=== PATIENT | female | born 1950 | race Caucasian/White ===

== ENCOUNTER 2017-04-27 18:26 | Emergency (ER) | payer MEDICARE ==
[2017-04-27] MEDS ORDERED: SILVER SULFADIAZINE 25 GM CREAM TOP ONE (19:13)
[2017-04-27] MEDS ORDERED: HYDROCODONE/APAP 5/325MG TABLET PO ONE (19:15)
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
== END 2017-04-27 19:55 | disposition home or self-care (01) ==
LOC: ER 18:26
DX: T21.21XA Burn of second degree of chest wall, initial encounter (principal); X12.XXXA Contact with other hot fluids, initial encounter; Y93.G3 Activity, cooking and baking
CPT/HCPCS: 99283